=== PATIENT | male | born 1990 | race Caucasian/White ===

== ENCOUNTER 2017-12-02 13:16 | Emergency (ER) | payer SELFPAY ==
[2017-12-02 13:35] VITALS: BP 116/69; PULSE 70; TEMP 99.3; BMI 23.9
[2017-12-02] MEDS ORDERED: KETOROLAC TROMETHAMINE 60 MG/2 ML VIAL IM ONE (14:01)
[2017-12-02] MEDS ORDERED: KETOROLAC TROMETHAMINE 60 MG/2 ML VIAL ONE (14:04)
--- NOTE | 2017-12-02 14:38 | PDOC ---
History of Present Illness - General Chief Complaint: Back Pain Stated Complaint: BACK PAIN Time Seen by Provider: 12/02/17 13:36 History Source: Patient - History of Present Illness Occurred: reports: last week Severity: reports: moderate Pain Location: reports: back Past History - Past Medical History Allergies/Adverse Reactions: Allergies Allergy/AdvReac Type Severity Reaction Status Date / Time No Known Allergies Allergy Verified 12/02/17 13:31 Home Medications: Ambulatory Orders Ibuprofen [Motrin -] 2 tab PO Q6H #30 tablet 12/02/17 COPD: No Other medical history: DENIES. - Suicide/Smoking/Psychosocial Hx Smoking History: Current some day smoker Have you smoked in the past 12 months: Yes Information on smoking cessation initiated: No Review of Systems - Review of Systems Constitutional: No: Chills, Fever ABD/GI: No: Nausea, Vomiting, Abdominal cramping : No: Dysuria, Flank Pain, Hematuria Musculoskeletal: Yes: Back Pain. No: Muscle Weakness Neurological: No: Numbness, Tingling *Physical Exam - Vital Signs Last Vital Signs Temp Pulse Resp BP Pulse Ox 99.3 F 70 17 116/69 99 12/02/17 13:31 12/02/17 13:31 12/02/17 13:31 12/02/17 13:31 12/02/17 13:31 - Physical Exam General Appearance: Yes: Appropriately Dressed. No: Apparent Distress HEENT: positive: Normal Voice Neck: positive: Supple Respiratory/Chest: negative: Respiratory Distress Gastrointestinal/Abdominal: positive: Soft. negative: Tender Musculoskeletal: positive: Vertebral Tenderness (to R lower back). negative: CVA Tenderness Extremity: positive: Normal Inspection Integumentary: positive: Dry, Warm Neurologic: positive: Fully Oriented, Alert, Normal Mood/Affect ED Treatment Course - Medications Given in the ED: ED Medications Discontinued Medications Generic Name Dose Route Start Last Admin Trade Name Freq PRN Reason Stop Dose Admin Ketorolac Tromethamine 60 mg 12/02/17 14:01 12/02/17 14:07 Toradol Injection - IM 12/02/17 14:02 60 mg ONCE ONE Administration Medical Decision Making - Medical Decision Making 12/02/17 14:39 27-year-old male, no significant history here with back pain. Patient complaining of R lower back pain 1 week that started after heavy lifting at work. Unable to describe pain and states it is intermittent and worse w/ weight bearing. States he was seen by chiropractor several days ago who did a cupping procedure that did not improve pain. Not currently taking any pain meds. No lower extremity weakness, saddle anesthesia or bowel or bladder incontinence. Patient well-appearing and stable with reproducible tenderness to right lower back. No red flags at this time. Most likely muscular. DC with pain control and PMD follow-up as needed *DC/Admit/Observation/Transfer Diagnosis at time of Disposition: Back strain Qualifiers: Encounter type: initial encounter Qualified Code(s): S39.012A - Strain of muscle, fascia and tendon of lower back, initial encounter - Discharge Dispostion Disposition: HOME Condition at time of disposition: Improved - Prescriptions Prescriptions: Ibuprofen [Motrin -] 2 tab PO Q6H #30 tablet - Referrals - Patient Instructions Printed Discharge Instructions: DI for Back Strain or Sprain Additional Instructions: La causa de cheema dolor de espalda es probablemente muscular. [place] podra deberse a un trabajo pesado en el trabajo. [place] tipo de dolor generalmente sigue cheema curso y mejora. Puede ari Motrin o Tylenol segn sea necesario para el dolor. Si el dolor contina siendo un problema, tyler un seguimiento con cheema mdico de atencin primaria Print Language: GE[place]GI[place] - Post Discharge Activity Forms/Work/School Notes: Back to Work
== END 2017-12-02 14:46 | disposition home or self-care (01) ==
LOC: JERFT 13:16
PROC: 3E0233Z Introduction of Anti-inflammatory into Muscle, Percutaneous Approach (ICD-10-PCS; principal; 2017-12-02)
DX: S39.012A Strain of muscle, fascia and tendon of lower back, initial encounter (principal); X50.0XXA Overexertion from strenuous movement or load, initial encounter; Y93.89 Activity, other specified; Y92.69 Other specified industrial and construction area as the place of occurrence of the external cause; Y99.0 Civilian activity done for income or pay
CPT/HCPCS: 99281-25

== ENCOUNTER 2021-10-13 10:47 | Emergency (ER) | payer SELFPAY ==
[2021-10-13 10:53] VITALS: BP 117/80; PULSE 76; TEMP 97.8; BMI 23.7
[2021-10-13 11:54] LABS: URINE APPEARANCE CLEAR; URINE BILIRUBIN NEGATIVE (NEGATIVE); URINE COLOR YELLOW; URINE GLUCOSE (UA) NEGATIVE (NEGATIVE); URINE KETONE TRACE (NEGATIVE); URINE LEUK ESTERASE NEGATIVE (NEGATIVE); URINE NITRITE NEGATIVE (NEGATIVE); URINE PROTEIN NEGATIVE (NEGATIVE); URINE UROBILINOGEN 0.2 mg/dL (0.2-1.0)
== END 2021-10-13 13:53 | disposition home or self-care (01) ==
LOC: JER 10:47
DX: N43.3 Hydrocele, unspecified (principal); N50.811 Right testicular pain; I86.1 Scrotal varices
CPT/HCPCS: 36415; 76870-TC; 81003; 87491; 87591; 99284-25